=== PATIENT | female | born 1955 | race African-American/Black ===

== ENCOUNTER 2020-05-19 14:25 | Inpatient (IN) | payer OTHER ==
[~2020-05-19] VITALS: Ht 157.5 cm; Wt 145.8 kg
[2020-05-19 14:27] VITALS: BP 132/62
[2020-05-19 15:30] LABS: ABSOLUTE NEUTROPHILS 10.7 thou/uL (1.4-8.2); BASOPHILS 0.5 % (0.0-2.0); EOSINOPHILS 0.2 % (0.0-3.0); HEMATOCRIT 34.1 % (37.0-47.0); HEMOGLOBIN 10.7 gm/dL (12.0-15.0); MCH 26.9 pg (26.0-34.0); MCHC 31.5 g/dL (28.0-37.0); MCV 85.6 fL (80.0-100.0); MONOCYTES 5.2 % (1.0-8.0); PLATELET COUNT 233 thou/uL (150-400); POLYS 85.1 % (36.0-66.0); RBC 3.98 mil/uL (4.20-5.00); RDW 15.7 % (10.5-14.5); WBC 12.6 thou/uL (4.0-11.0)
[2020-05-19 15:36] LABS: CALCIUM 8.7 mg/dL (8.5-10.1); POTASSIUM 4.3 mmol/L (3.5-5.1)
[2020-05-19 15:42] LABS: ALBUMIN 2.9 g/dL (3.4-5.0); TOTAL BILIRUBIN 0.4 mg/dL (0.2-1.0); TOTAL PROTEIN 8.2 g/dL (6.4-8.2)
[2020-05-19 15:43] LABS: URINE BILIRUBIN NEGATIVE (Negative); URINE BLOOD NEGATIVE (Negative); URINE CLARITY CLEAR; URINE COLOR YELLOW; URINE GLUCOSE-RANDOM* NEGATIVE (Negative); URINE KETONES NEGATIVE (Negative); URINE LEUKOCYTES-REFLEX NEGATIVE (Negative); URINE NITRITE-REFLEX NEGATIVE (Negative); URINE PROTEIN (DIPSTICK) NEGATIVE (Negative); URINE UROBILINOGEN 0.2 E.U./dl (0.2-1.0)
[2020-05-19 18:02] LABS: BE(vivo) 2.7 mmol/L (-2 to +3); HCO3 27.1 mmol/L (22.0-26.0); PCO2 40.7 mmHg (35.0-45.0); PO2 83.3 mmHg (80.0-100.0); pH 7.441 (7.360-7.450); sO2 96.6 % (92.0-98.0)
[2020-05-20] MEDS ORDERED: PROAIR HFA8.5 GM INH (03:33)
[2020-05-20] MEDS ORDERED: ANORO ELLIPTA1 EACH INH (03:34)
[2020-05-20] MEDS ORDERED: BACLOFEN 10MG T10 MG PO (03:34)
[2020-05-20] MEDS ORDERED: CARTIA XT300 M1 PO (03:35)
[2020-05-20] MEDS ORDERED: CYMBALTA30 MG PO (03:36)
[2020-05-20] MEDS ORDERED: VITAMIN D350 MCG PO (03:36)
[2020-05-20] MEDS ORDERED: NEURONTIN 400400 M1 PO (03:37)
[2020-05-20] MEDS ORDERED: IBUPROFEN 600600 M1 PO (03:38)
[2020-05-20] MEDS ORDERED: HUMULIN R100 UNIT/1 SUBQ (03:38)
[2020-05-20] MEDS ORDERED: LEVEMIR FL100 UNIT/2 SUBQ (03:40)
[2020-05-20] MEDS ORDERED: IPRAT-ALBUT 0.5-3 ML INH (03:40)
[2020-05-20] MEDS ORDERED: ZESTRIL40 MG PO (03:41)
[2020-05-20] MEDS ORDERED: LIDOCAINE 2%2 %/5 GM TOP (03:41)
[2020-05-20] MEDS ORDERED: POTASSIUM20 PO (03:42)
[2020-05-20] MEDS ORDERED: HYDROCODON-ACE1 EAC7 PO (03:42)
[2020-05-20] MEDS ORDERED: ROSUVASTATIN CA20 MG PO (03:43)
[2020-05-20] MEDS ORDERED: ULTRAM50 MG PO (03:44)
[2020-05-20] MEDS ORDERED: DEMADEX20 MG PO (03:44)
[2020-05-20] MEDS ORDERED: TYLENOL325 M1 PO (03:45)
[2020-05-20 06:12] LABS: HEMATOCRIT 33.6 % (37.0-47.0); HEMOGLOBIN 11.2 gm/dL (12.0-15.0); MCH 28.9 pg (26.0-34.0); MCHC 33.2 g/dL (28.0-37.0); PLATELET COUNT 204 thou/uL (150-400); RBC 3.86 mil/uL (4.20-5.00); RDW 16.1 % (10.5-14.5); WBC 24.3 thou/uL (4.0-11.0)
[2020-05-20 06:21] LABS: CALCIUM 8.2 mg/dL (8.5-10.1); MAGNESIUM 1.7 mg/dL (1.8-2.4); POTASSIUM 3.4 mmol/L (3.5-5.1)
[2020-05-20 06:44] LABS: TROPONIN-I 0.63 ng/mL (<0.06)
--- NOTE | 2020-05-20 07:48 | EKG ---
[facility] [place] [address] ELECTROCARDIOGRAM REPORT Name: GILDA CONTRERAS Room #: 170-23 ADM IN M.R.#: [id number] Admission: 05/19/20 Attend Phys: Richard Hitchcock MD Discharge: Date of : 53 Report #: [id number] THIS REPORT FOR: cc: Sobia Monk,Sobia Villafuerte,Gabriel Arana MD [facility] ~ THIS REPORT FOR: //name// [facility] ED Test Date: 2020-05-19 Test Time: 14:44:05 Pat Name: GILDA TORRES Department: Room: 170 Gender: F [employer]: TEE : 1955 Requested By: Tomasa Martinez Order Number: [id number] MD: Gabriel Abraham Measurements Intervals [place] Rate: 123 P: 54 WA: 166 QRS: 15 QRSD: 83 T: 64 QT: 298 QTc: 427 Interpretive Statements Sinus tachycardia Otherwise normal No previous ECG available for comparison Electronically Signed On 05-20-2020 7:47:49 CDT by Gabriel Abraham [email or web address] <ELECTRONICALLY SIGNED> By: Gabriel Abraham MD, [facility] 05/20/20 0747 1444 1444 Gabriel Abraham MD, [facility] /EPI
[2020-05-20 07:49] VITALS: BP 92/44
--- NOTE | 2020-05-20 08:41 | NUR ---
PT TRANSFERRED TO INPATIENT BED AND REPOSITIONED WITH STAFF ASSISTANCE. PT RIGHT LEG WOUND WRAPPED. PT REMOVED FROM BEDPAN. STATES SHE IS UNABLE TO HAVE BM AT THIS TIME. DENIES FURTHER NEDS AT THIS TIME.
[2020-05-20 09:11] LABS: ABSOLUTE NEUTROPHILS 23.1 thou/uL (1.4-8.2); ANISOCYTOSIS 1+
[2020-05-20 09:42] LABS: CHOLESTEROL 102 mg/dL (<200); HDL CHOLESTEROL 42 mg/dL (>40); LDL CHOLESTEROL 47 mg/dL (<100); TC:HDL 2.4 Ratio (Not establshd); TRIGLYCERIDE 67 mg/dL (<150); VLDL 13 mg/dL (<40)
--- NOTE | 2020-05-20 10:08 | NUR ---
TIME OUT/ VERIFICATION COMPLETED WITH EVA Flores RN IV TEAM FOR PICC LINE PLACEMENT
--- NOTE | 2020-05-20 10:50 | NUR ---
PT RECEIVED EKG & CXR. AWAITING RESULTS FOR PICC LINE USE
--- NOTE | 2020-05-20 11:33 | NUR ---
REMOVED PT BREAKFAST TRAY, MOVED BED TABLE TO SIDE OF BED AND CHANGED TV CHANNEL FOR PT PER HER REQUEST. PT DENIES FURTHER NEEDS AT THIS TIME.
--- NOTE | 2020-05-20 12:00 | NUR ---
VASCULAR ACCESS CONSULTED FOR PICC LINE. PT'S LABS,MEDS,HISTORY,ORDER AND CONSENT VERIFIED. DISCUSSED BENEFITS AND RISK OF PICC PT VERBALIZED UNDERSTANDING. RACHAEL CEPHALIC WAS WIDELY PATENT WITH USG, 4FR DL POWER PICC TRIMMED TO 49CM INSERTED TO 0CM. 1ST CXR STATES TOO DEEP WITHDREW PICC 2CM ORDERED 2ND CXR PT TOLERATED WELL
[2020-05-20 12:09] VITALS: BP 102/50
--- NOTE | 2020-05-20 12:40 | NUR ---
CXR CONFIRMED PLACEMENT IN DISTAL SVC, RELEASED FOR IMMEDIATE USE PER PROTOCOL TO DILIA STREETER
--- NOTE | 2020-05-20 15:51 | EKG ---
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 : 1955 Requested By: Nancy Oconnell Order Number: [id number] MD: Buddy Copeland Measurements Intervals [place] Rate: 84 P: 58 ME: 167 QRS: -7 QRSD: 102 T: 30 QT: 385 QTc: 456 Interpretive Statements Sinus rhythm Paired ventricular premature complexes Low voltage, precordial leads Compared to ECG 05/19/2020 14:44:05 Ventricular premature complex(es) now present Low QRS voltage now present Sinus tachycardia no longer present Electronically Signed On 05-20-2020 15:50:52 CDT by Buddy Copeland [email or web address] <ELECTRONICALLY SIGNED> By: Buddy Copeland MD 05/20/20 1550 1046 1046 Buddy Copeland MD /EPI
[2020-05-20 16:30] VITALS: BP 107/50
[2020-05-20 20:54] VITALS: BP 107/50
[2020-05-20 21:30] VITALS: BP 140/50
[2020-05-21 04:33] VITALS: BP 166/79
[2020-05-21 06:12] LABS: HEMATOCRIT 33.2 % (37.0-47.0); HEMOGLOBIN 10.6 gm/dL (12.0-15.0); MCH 27.3 pg (26.0-34.0); MCHC 31.8 g/dL (28.0-37.0); MCV 85.9 fL (80.0-100.0); RBC 3.87 mil/uL (4.20-5.00); RDW 15.8 % (10.5-14.5); WBC 19.9 thou/uL (4.0-11.0)
[2020-05-21 06:50] LABS: CALCIUM 8.6 mg/dL (8.5-10.1); POTASSIUM 3.7 mmol/L (3.5-5.1)
[2020-05-21 07:42] VITALS: BP 154/86
[2020-05-21 11:43] VITALS: BP 156/75
[2020-05-21 15:39] VITALS: BP 157/71
--- NOTE | 2020-05-21 16:08 | NUR ---
INITIAL ASSESSMENT: ANDREW reviewed chart and spoke with nursing and attending physician. Pt was admitted from [facility] due to pneumonia/hypoxia. Pt placed in Enhanced Isolation to r/o COVID-19. Pt's two tests are negative. ANDREW spoke with pt via phone. Introduced role of SW. Pt appears to be alert/orientated. Pt reports she has lived at [facility] for about a year. Pt has a cane, walker and w/c at the facility. Pt confirms plan to return to [facility] when medically stable. Pt's sisters, Glo and Sheryl, listed as contacts for pt. SW faxed clinical info/COVID test results to [facility] for review. ANDREW spoke with Angelica in admissions, to provide update. Per Angelica, pt has tested negative for COVID at their facility. Pt would benefit from therapy evals when able to participate. ANDREW is following to assist as needed with discharge planning.
[2020-05-21 20:48] VITALS: BP 168/88
[2020-05-21] MEDS ORDERED: HUMALOG100 UNIT/1 SUBQ (22:53)
[2020-05-22 03:06] LABS: GLYCOHEMOGLOBIN (HGB A1C) 6.9 % (4.8-5.6)
--- NOTE | 2020-05-22 06:00 | NUR ---
Pt. awake all night watching television. She c/o pain to her lower legs and pain meds given (see emar) with some relief noted. Elevated blood sugar at and [facility] notified, see new orders. Bed alarm is on.
[2020-05-22 07:23] VITALS: BP 173/72
[2020-05-22 08:49] LABS: CALCIUM 8.7 mg/dL (8.5-10.1); POTASSIUM 3.6 mmol/L (3.5-5.1)
--- NOTE | 2020-05-22 09:45 | NUR ---
ORDERS RECEIVED FOR COGNITIVE/COMMUNICATION EVALUATION. HOWEVER PATIENT REFUSED FORMAL EVALUATION THIS DATE. BASED ON CLINICAL PRESENTATION EVIDENCED DURING CLINICAL BEDSIDE SWALLOW EVALUATION WELL WITNESSED DURING PATIENT AND MEDICAL/NURSING STAFF INTERACTIONS, PATIENT IS LIKELY AT PREMORBID COGNITIVE BASELINE. PATIENT LIKELY TO DISCHARGE BACK TO SNF LATER THIS DATE. OFFICIAL GREETER TO SIGN OFF AT THIS TIME.
--- NOTE | 2020-05-22 10:29 | 2DMMODE ---
[facility] [place] [address] 2 D/M-MODE ECHOCARDIOGRAM Name: GAUDENCIO TORRESGILDABrandi LOPEZ Room #: 453-P ADM IN M.R.#: [id number] Admission: 05/19/20 Attend Phys: Richard Hitchcock MD Discharge: Date of : 53 Report #: [id number] THIS REPORT FOR: cc: Sobia Monk,Sobia Hammond,Nabeel Chery MD ~ APPROVED REPORT Study performed: 05/22/2020 09:27:38 EXAM: Comprehensive 2D, Doppler, and color-flow Echocardiogram Patient Location: Bedside Room #: [facility] Status: routine BSA: 2.34 HR: 67 bpm BP: 168/88 mmHg Rhythm: NSR Other Information Study Quality: Adequate Technically limited study due to body habitus. Indications Congestive Heart Failure Diabetes Elevated Troponin Hypertension/HDD 2D Dimensions IVSd: 11.68 (7-11mm) LVOT Diam: 21.81 (18-24mm) LVDd: 49.17 mm PWd: 13.45 (7-11mm) Ascending Ao: 31.40 (22-36mm) LVDs: 33.19 (25-40mm) Aortic Root: 29.89 mm IVC: 21.00 mm Volumes Left Atrial Volume (Systole) Single Plane 4CH: 77.20 mL Single Plane 2CH: 77.13 mL LA ESV Index: 38.00 mL/m2 Aortic Valve AoV Peak Danielito.: 1.72 m/s [facility] [address] [place] [address] 2 D/M-MODE ECHOCARDIOGRAM Name: GILDA CONTRERAS Room #: 453-[facility] IN ..#: [id number] Admission: 05/19/20 Attend Phys: Richard Hitchcock MD Discharge: Date of : 53 Report #: [id number] Peak Gr.: 11.84 mmHg LVOT Max P.83 mmHg LVOT Max V: 1.21 m/s SAVANNAH Vmax: 2.62 cm2 Mitral Valve E/A Ratio: 1.3 MV Decel. Time: 176.74 ms MV E Max Danielito.: 1.36 m/s MV A Danielito.: 1.06 m/s MV PHT: 51.25 ms IVRT: 55.36 ms Pulmonary Valve PV Peak Danielito.: 1.08 m/s PV Peak Gr.: 4.66 mmHg Pulmonary Vein P Vein S: 0.60 m/s P Vein A: 0.28 m/s P Vein D: 0.40 m/s P Vein A Dur.: 110.7 msec P Vein S/D Ratio: 1.50 Left Ventricle The left ventricle is normal size. There is normal LV segmental wall motion. Mild concentric left ventricular hypertrophy. The left ventricular systolic function is normal. The left ventricular ejection fraction is within the normal range. LVEF is 55-60%. Grade I - abnormal relaxation pattern. Right Ventricle The right ventricle is normal size. The right ventricular systolic function is normal. Atria Left atrium is mildly dilated. The right atrium size is normal. Aortic Valve The aortic valve is normal in structure. No aortic regurgitation is present. There is no aortic valvular stenosis. Mitral Valve The mitral valve is normal in structure. There is no mitral valve regurgitation noted. No evidence of mitral valve stenosis. Tricuspid Valve The tricuspid valve is normal in structure. There is no tricuspid valve regurgitation noted. [facility] [address] [place] [address] 2 D/M-MODE ECHOCARDIOGRAM Name: GILDA CONTRERAS Room #: 453-P ADM IN M.R.#: [id number] Admission: 05/19/20 Attend Phys: Richard Hitchcock MD Discharge: Date of : 53 Report #: [id number] Pulmonic Valve The pulmonary valve is normal in structure. There is no pulmonic valvular regurgitation. Great Vessels The aortic root is normal in size. IVC is dilated and collapses >50% with inspiration. Pericardium There is no pericardial effusion. <Conclusion> The left ventricle is normal size. Mild concentric left ventricular hypertrophy. The left ventricular systolic function is normal. Grade I - abnormal relaxation pattern. The right ventricle is normal size. Left atrium is mildly dilated. The aortic valve is normal in structure. There is no mitral valve regurgitation noted. <ELECTRONICALLY SIGNED> By: Nabeel Celis MD 05/22/20 1028 1028 1028 Nabeel Celis MD /INF
--- NOTE | 2020-05-22 14:37 | NUR ---
CARE TEAM INDICATED THAT PT IS TO HAVE ECHO DONE TODAY AND TO FOLLOW UP ON OUTPATIENT BASIS FOR STRESS TEST. PT CONTINUES ON VANC AND ZOSYN AND IT APPEARES ID IS STILL AWAITING FINAL CULTURES TO DETERMINE CONTINUED IV ABX TREATMENT. CM CALLED JAYLEN AND LEFT A VM FOR YANIRA IN ADMISSIONS. TO DETERMINE IF PT WOULD NEED ANOTHER COVID TEST PRIOR TO POSSIBLE ADMISSION. AWAITNING RESPONSE.
--- NOTE | 2020-05-22 15:22 | NUR ---
Assumed pt care at 7am.Pt in bed very anxious about getting breakfast.Rn told pt tray will be deliver before 9am.Assessment completed.vss.Dr Celis and Mariana her,order noted.Received call from [facility],updates given. Pt tolerated meds and diet.Wanted to dc to [facility] today if possible.Drsg change to rt lower leg will be done later this shift per pt request.No verbal c/o at present.Will continue to monitor.
[2020-05-22 20:53] VITALS: BP 129/59
--- NOTE | 2020-05-22 23:48 | NUR ---
ASSUMED CARE OF PT AT 1900. PT IS A/O X4. DRESSINGS TO RIGHT LOWER LEG CHANGED BY DAY SHIFT NURSE AND IS DRY AND INTACT WITH NO DRAINAGE. PT DOES C/O PAIN TO LOWER RIGHT LEG. PRN PAIN MEDICATION GIVEN DIRECTED. PT IS CURRENTLY LYING DOWN IN HER BED AND APPEARS TO BE SLEEPING. FALL PRECAUTIONS ARE IN PLACE, CALL LIGHT IS WITHIN REACH. WILL CONTINUE TO MONITOR.
[2020-05-23 05:53] LABS: CALCIUM 8.4 mg/dL (8.5-10.1); CREATININE 1.1 mg/dL (0.6-1.0); POTASSIUM 3.4 mmol/L (3.5-5.1)
[2020-05-23 08:13] VITALS: BP 180/78
--- NOTE | 2020-05-23 11:22 | HC ---
[facility] [place] [address] CONSULTATION Name: GAUDENCIO TORRESGILDABrandi LOPEZ Room #: 453-P ADM IN M.R.#: [id number] Admission: 05/19/20 Attend Phys: Richard Hitchcock MD Discharge: Date of : 53 Report #: [id number] THIS REPORT FOR: cc: Sobia Monk,Alee Brooks MD ~ CC: Sobia Hitchcock DATE OF SERVICE: 05/22/2020 ENDOCRINE CONSULTATION NOTE CONSULTING PHYSICIAN: Dr. Hitchcock. REASON FOR CONSULTATION: Uncontrolled type 2 diabetes mellitus, hyperglycemia. HISTORY OF PRESENT ILLNESS: This is a 64-year-old female patient who presented to [facility] by EMS from her residence at [facility] with reports of altered mental status. When she arrived to the ER, the patient was worked up and was found to have issues pertaining to acute on chronic CHF, elevated troponin with possible non-STEMI as well as sepsis. She was admitted for further care and monitoring. The patient's background is significant for multiple medical issues including type 2 diabetes mellitus as well as obesity, hypertension, hyperlipidemia. She has been diagnosed with diabetes mellitus over 10 years ago and is maintained on a combination of Humulin R insulin 85 units per meal, Levemir insulin 135 units at night. She describes a very good level of control at her shelter facility with most blood glucose values falling between 80 and 130 mg/dL and without issues pertaining to hypoglycemia. The patient is not aware of difficulties pertaining to diabetic retinopathy, but does have peripheral neuropathy affecting both feet. She is also known to have hyperlipidemia and is maintained on Crestor therapy. She is hypertensive and reports that her blood pressure is typically under adequate control on a combination of torsemide, lisinopril and diltiazem. REVIEW OF SYSTEMS: CONSTITUTIONAL: Fatigue, tiredness, but not fever or chills or changes in body weight. HEENT: Negative for sore throat, sinus pain or ear drainage. PULMONARY: Occasional shortness of breath and cough, but no hemoptysis. CARDIAC: Lower extremity swelling, chronic dyspnea on exertion. No chest pain or palpitations. GASTROINTESTINAL: Occasional abdominal discomfort and nausea, but no vomiting. NEUROLOGY: Mental status changes, behavioral changes. Occasional [facility] [address] [place] [address] CONSULTATION Name: GAUDENCIO TORRESGILDA Room #: 453[facility] IN M.R.#: [id number] Admission: 05/19/20 Attend Phys: Richard Hitchcock MD Discharge: Date of : 53 Report #: [id number] lightheadedness, but not seizure activity or severe frequent headaches. DERMATOLOGIC: Chronic lower extremity stasis dermatitis. Otherwise, review of systems noncontributory other than those mentioned in HPI. PAST MEDICAL HISTORY: 1. Type 2 diabetes mellitus. 2. Hypertension. 3. Hyperlipidemia. 4. Obesity. 5. Obstructive sleep apnea. 6. History of sarcoidosis. 7. Chronic lymphedema. 8. Chronic venous insufficiency. 9. Peripheral diabetic neuropathy. OUTPATIENT MEDICATIONS: Include acetaminophen t.i.d. p.r.n., tramadol 50 mg q.i.d. p.r.n., torsemide 20 mg daily, rosuvastatin 20 mg daily, potassium chloride t.i.d., lisinopril 40 mg daily, Levemir insulin 135 units at bedtime, ibuprofen 600 mg q. 6 hours p.r.n., Humulin R insulin 85 units t.i.d. a.c., gabapentin 400 mg p.o. q.i.d., duloxetine 30 mg daily, cholecalciferol vitamin D3 2000 units daily, diltiazem 300 mg daily, baclofen 10 mg t.i.d., albuterol 2 puffs p.r.n. ALLERGIES: ATORVASTATIN AND CONTRAST DYE. FAMILY HISTORY: Noncontributory. SOCIAL HISTORY: The patient resides at [facility]. Denies use of alcohol. She is an ex-smoker, quit more than 20 years ago. PHYSICAL EXAMINATION: GENERAL: Pleasant female patient who is not in apparent pain or distress. VITAL SIGNS: Blood pressure is 168/88 mmHg, heart rate is 55 beats per minute, respiration 18 per minute, temperature is 36.4 degrees Celsius. CONSTITUTIONAL: The patient is sitting upright in bed. She does not seem to be in apparent pain or distress. She is morbidly obese. HEENT: Anicteric sclerae. Intact extraocular motions. NECK: Supple, without JVD or thyromegaly. CHEST: Noted for distant breath sounds with scattered rales, but not wheezes or crackles. HEART: Regular rate and rhythm without murmurs or gallops. ABDOMEN: Obese, but soft, lax. No guarding. Active bowel sounds. EXTREMITIES: Lower extremity exam both lower extremities are wrapped in compression dressing. No open skin wounds. Pedal pulses are faint. NEUROLOGIC: Awake, alert and oriented to time, place and person. The remainder of her examination is largely nonfocal. [facility] [address] [place] [address] CONSULTATION Name: GILDA CONTRERAS Room #: 453-P [facility] IN Paul#: [id number] Admission: 05/19/20 Attend Phys: Richard Hitchcock MD Discharge: Date of : 53 Report #: [id number] PSYCHIATRIC: Pleasant, interactive. Normal mood and affect. LABORATORY DATA: Blood glucose on arrival was 278 and has gone as high as 446 mg/dL, most recently at 312 mg/dL. Sodium 137, potassium 3.6, chloride 99, CO2 of 31, anion gap 7, creatinine 1.0, AST 17, total bilirubin 0.4, calcium 8.7, magnesium 1.7, alkaline phosphatase 47, ALT 12, total protein 8.2, albumin 2.9 and EGFR 67. Lactic acid 1.2. Troponin 0.63. Total cholesterol 102, triglycerides 65, HDL 42, LDL 47. BNP 1421. White blood count 19.9, hemoglobin 10.6, hematocrit 33.2, platelets 193. Hemoglobin A1c is 6.9%. ASSESSMENT AND PLAN: 1. Type 2 diabetes mellitus. The patient has a rather large insulin dose requirement; however, she reports well controlled blood glucose values on a daily basis as well as a lack of hypoglycemia. Her hemoglobin A1c of 6.9% measured here speaks of the same outlook. Given this seemingly suitable regimen, I will place the patient on a combination of Humulin R 50 units with meals as well as Lantus insulin at 110 units at bedtime. This will be accompanied by moderate intensity Humalog supplemental scale to be used as needed. Blood glucose monitoring will be commenced a.c. and at bedtime to help with the patient's management. The patient is being given significantly lower dose than her usual maintenance dose due to the expectation of p.o. intake deficit compared to her home environment. 2. Hypertension. The patient's level of blood pressure control has been adequate, continue the current regimen. 3. Hyperlipidemia. The patient currently is treated with Crestor as an outpatient for hyperlipidemia. I will place her on atorvastatin during this hospital stay at 40 mg daily. 4. Diabetic neuropathy. The patient is maintained on a combination of gabapentin and duloxetine as an outpatient for diabetic neuropathy with a fair control. She seems to be comfortable so far during this hospital stay. I will defer the resumption of these agents to her hospital medicine team. I have reviewed the patient's clinical care notes, laboratory data, and other pertinent clinical information for over 35 minutes in addition to my encounter time with this patient. I certainly appreciate this consultation by Dr. Hitchcock. <ELECTRONICALLY SIGNED> By: Alee Wu MD 05/23/20 1122 1314 1331 Alee Wu MD /nt
[2020-05-23 15:23] VITALS: BP 143/54
--- NOTE | 2020-05-23 17:08 | NUR ---
Assumed pt care at 7am.Pt in bed resting and cheerful today.Assessment completed.vss.Pt c/o generalized pain and requested for pain med.Am meds given with breakfast and well tolerated.Complete bath and bed change done this afternoon.Dr Peña and Naldo here,order noted.Pt family here to visit, updates given.Drsg change will be done to rt lower leg at the end of shift. No further c/o. will continue to monitor.
[2020-05-23 19:46] VITALS: BP 136/57
--- NOTE | 2020-05-24 02:50 | NUR ---
ASSUMED CARE OF PT AT 1900. PT IS A/O X4. VSS. AFEBRILE. 100% O2 ON 2 LITERS NC. DRSGS TO LE ARE C/D/I. NO C/O OF SOA OR COUGH. C/O OF PAIN TO RIGHT LE. PRN PAIN MEDICATION GIVEN DIRECTED. PT IS PROGRESSING TOWARDS DC PLAN OF CARE GOALS. CURRENTLY, PT IS IN HER BED WITH HOB ELEVATED AND APPEARS TO BE SLEEPING. FALL PRECAUTIONS ARE IN PLACE, CALL LIGHT IS WITHIN REACH. WILL CONTINUE TO MONITOR.
[2020-05-24 06:13] LABS: CALCIUM 8.1 mg/dL (8.5-10.1); CREATININE 0.9 mg/dL (0.6-1.0)
[2020-05-24 06:15] LABS: POTASSIUM 2.9 mmol/L (3.5-5.1)
[2020-05-24 07:27] VITALS: BP 134/68
[2020-05-24 16:19] LABS: EOSINOPHILS 0.1 % (0.0-3.0); MCH 27.2 pg (26.0-34.0); MONOCYTES 3.7 % (1.0-8.0)
[2020-05-24 16:21] LABS: ABSOLUTE NEUTROPHILS 11.5 thou/uL (1.4-8.2); BASOPHILS 0.3 % (0.0-2.0); HEMATOCRIT 37.9 % (37.0-47.0); LYMPHOCYTES 9.8 % (24.0-44.0); MCHC 31.8 g/dL (28.0-37.0); MCV 85.8 fL (80.0-100.0); POLYS 86.1 % (36.0-66.0); RBC 4.41 mil/uL (4.20-5.00); RDW 15.8 % (10.5-14.5); WBC 14.1 thou/uL (4.0-11.0)
[2020-05-24 16:24] VITALS: BP 116/41
[2020-05-24 16:33] LABS: CREATININE 1.2 mg/dL (0.6-1.0); MAGNESIUM 1.6 mg/dL (1.8-2.4); POTASSIUM 3.3 mmol/L (3.5-5.1)
[2020-05-24 16:43] LABS: PLATELET COUNT 183 thou/uL (150-400)
--- NOTE | 2020-05-24 19:04 | NUR ---
A/O, afebrile, calm and cooperative. on room air for the whole shift. up to chair since after lunch, tolerated well.
[2020-05-24 19:10] VITALS: BP 134/56
--- NOTE | 2020-05-25 05:47 | NUR ---
PATIENT ALERT AND ORIENTED X4. COOPERATIVE WITH CARE. IV ABX INFUSED W/O COMPLICATION. BS MONITORED PER ORDER. PROCTOR TO D/D WITH YELLOW URINE. 2LNC WITH SOA UPON EXERTION. BILATERAL LOWER LEGS WRAPPED D/I. MEDICATED WITH HYDROCODONE X1. PATIENT REFUSED TRAMADOL AFTER THIS NURSE REMOVED FROM [facility], WASTED WITH RN. PATIENT UP IN CHAIR AT SHIFT CHANGE, TRANSFERRED TO BED WITH ONE ASSIST. WILL MONITOR.
[2020-05-25 07:35] VITALS: BP 146/55
[2020-05-25 07:47] LABS: HEMATOCRIT 35.2 % (37.0-47.0); HEMOGLOBIN 11.3 gm/dL (12.0-15.0); MCH 27.5 pg (26.0-34.0); MCHC 32.1 g/dL (28.0-37.0); MCV 85.6 fL (80.0-100.0); RBC 4.12 mil/uL (4.20-5.00); RDW 15.8 % (10.5-14.5); WBC 16.9 thou/uL (4.0-11.0)
[2020-05-25 08:11] LABS: CREATININE 0.9 mg/dL (0.6-1.0)
[2020-05-25 08:46] LABS: POTASSIUM 2.9 mmol/L (3.5-5.1)
[2020-05-25] MEDS ORDERED: PEPCID20 MG PO (12:16)
[2020-05-25] MEDS ORDERED: DEMADEX20 MG PO (12:16)
[2020-05-25] MEDS ORDERED: ASPIR 8181 MG PO (12:16)
[2020-05-25] MEDS ORDERED: CARVEDILOL12.5 MG PO (12:16)
[2020-05-25] MEDS ORDERED: MAG-OXIDE400 MG PO (12:16)
[2020-05-25] MEDS ORDERED: BENAZEPRIL HCL20 MG PO (12:16)
[2020-05-25] MEDS ORDERED: CYMBALTA30 MG PO (12:16)
[2020-05-25] MEDS ORDERED: PREDNISONE 5 MG5 MG PO (12:16)
[2020-05-25] MEDS ORDERED: MUCINEX600 MG PO (12:16)
[2020-05-25] MEDS ORDERED: AUGMENTIN 875-1 EACH PO (12:20)
--- NOTE | 2020-05-25 14:01 | NUR ---
PT DISCHARGING TODAY TO [facility] FAXED DC ORDERS/SUMMARY TO FACILITY SPOKE WITH YANIRA IN ADM SHE RECEIVED ORDERS AND ARRANGED TRANSPORT BY [facility] FOR [phone] TODAY. NOTIFIED PT'S SISTER (MAYURI) OF DC AND TIME OF TRANSPORT. UNIT NOTIFIED AND CHART COPY PER US. RN TO CALL REPORT TO [phone].
--- NOTE | 2020-05-25 14:53 | NUR ---
CARE TEAM INDICATED THAT PT IS MEDIALLY STABLE TO DISCHARGE BACK TO [facility] THIS DAY. CHART COPY ORDERED. ORDERS FAXED. [facility] TRANSPORT ARRANGED FOR 1700. PT AND SISTER ARE AWARE AND AGREEABLE. REPORT ALREADY CALLED BY NURSE. NO OTHER CM INTERVENTION INDICATED. CASE CLOSED.
[2020-05-25 15:42] VITALS: BP 137/63
[2020-05-25 17:26] VITALS: BP 137/63
--- NOTE | 2020-05-25 17:50 | NUR ---
Assumed pt care at 7am.Assessment completed.vss.Pt very anxious abot dc to [facility] today.Dr Hitchcock here,dc order noted.infrastructure project manager arranged for transport.Later this afternoon,Dr Campbell here and ordered new drsg change.Pt refused dc wound picture.She said there no need and should be left alone.Report off to Maureen lepe at [facility].Pt left per stretcher at 1750 in stable condition to [facility].
--- NOTE | 2020-05-26 09:58 | HC ---
[facility] [place] [address] CONSULTATION Name: GILDA CONTRERAS Room #: 453-P [facility] IN M.R.#: [id number] Admission: 05/19/20 Attend Phys: Richard Hitchcock MD Discharge: 05/25/20 Date of : 53 Report #: [id number] THIS REPORT FOR: cc: Sobia Monk,Rajat Humphreys MD ~ CC: Sobia Hitchcock DATE OF SERVICE: 05/20/2020 CHIEF COMPLAINT: Ulcerations lower extremity. HISTORY OF PRESENT ILLNESS: This is a 64-year-old female patient with a history of congestive heart failure, who presented to the Emergency Department with increasing shortness of breath and respiratory failure. She was noted to have ulcerations on her lower extremities. I have been asked to see her in this regard. The patient is sitting up. She is in the Emergency Department. She is not in distress at this time. ALLERGIES: Include ATORVASTATIN AND CONTRAST DYE. MEDICATIONS: Include acetaminophen, aspirin, carvedilol, famotidine, glucagon, insulin, lisinopril, Solu-Medrol, polyethylene glycol, vancomycin, tramadol. PAST MEDICAL HISTORY: Positive for history of congestive heart failure, chronic lymphedema, history of sarcoidosis, depression, diabetes, morbid obesity, venous insufficiency, asthma, obstructive sleep apnea. SOCIAL HISTORY: Negative for alcohol use. Positive for previous smoking. FAMILY HISTORY: Noncontributory. REVIEW OF SYSTEMS: CONSTITUTIONAL: The patient does complain of fever, denies chills or weight loss. NEUROLOGICAL: The patient denies focal weakness, numbness or tingling. EYES: The patient denies visual changes, redness, or drainage. ENT: The patient denies earache, nasal drainage, sore throat. CARDIOVASCULAR: The patient denies chest pain, palpitations or diaphoresis. PULMONARY: The patient denies cough or shortness of breath. GASTROINTESTINAL: The patient denies nausea, vomiting, diarrhea or abdominal pain. ORTHOPEDIC: The patient does complain of pain and swelling and ulcerations to the right lower extremity. Other systems in a 14-point review of systems are negative. [address] [address] CONSULTATION Name: GAUDENCIO BRIANGILDA Room #: 453-P [facility] IN [facility].#: [id number] Admission: 05/19/20 Attend Phys: Richard Hitchcock MD Discharge: 05/25/20 Date of : 53 Report #: [id number] PHYSICAL EXAMINATION: VITAL SIGNS: At this time include temperature 98.7, pulse 72, respiratory rate 19, blood pressure 102/50. GENERAL: This is a somewhat chronically ill-appearing female patient who appears to be in minimal distress. HEENT: Head normocephalic. Nose and throat clear. NECK: Supple. LUNGS: Diminished. HEART: Regular rhythm. ABDOMEN: Soft, bowel sounds present. EXTREMITIES: Lower extremities demonstrate venous stasis dermatitis and superficial ulcerations to the right lower extremity, some chronic stasis dermatitis to both lower extremities. NEUROLOGIC: The patient is alert and oriented, moving all 4 extremities spontaneously . LABORATORY DATA: Includes white blood cell count 24,000, hemoglobin 11.2. Sodium 137, potassium 3.4, chloride 100, CO2 of 26, BUN 15, creatinine 1.0, glucose 282. Troponin I is elevated at 0.63. Albumin is 2.9. CLINICAL IMPRESSION: 1. Venous type ulcerations to the right lower extremity. 2. Venous stasis dermatitis, bilateral lower extremities, chronic lymphedema. 3. History of hypertension, hyperlipidemia, type 2 diabetes mellitus and morbid obesity. 4. Moderate protein-calorie malnutrition. RECOMMENDATIONS: At this point in time, we will recommend topical AmLactin to the dry skin of both lower extremities, gentamicin, Xeroform, ABD, Kerlix and Erickson wrap to the ulcers on the right side and Kerlix, Erickson and AmLactin to the left lower extremity, continuation of current medications. Maximize nutrition for both glycemic control and wound healing. I appreciate being asked to see her in consultation. <ELECTRONICALLY SIGNED> By: Rajat Ojeda MD 05/26/20 [id number] Rajat Ojeda MD /nt
--- NOTE | 2020-05-27 14:55 | NUR ---
Call back rec'd from Kate at [facility] regarding pt's pending covid results. Pt tested 05/25/20. Bilingual Hr Generalist spoke with Marcia in the lab and she is checking on results as it was a send out.
== END 2020-05-25 18:27 | DRG 871 ==
LOC: ER 14:25 → 3W 17:16 → EROBS 17:16 → 3W 05-20 21:42 → 4W 05-21 18:32
PROVIDERS: Internal Medicine Pulmonary Disease; Nurse Practitioner; Nurse Practitioner Adult Health; Physician Assistant; ADMIT Internal Medicine; ATTEND Internal Medicine
PROC: B548ZZA Ultrasonography of Superior Vena Cava, Guidance (ICD-10-PCS; principal; 2020-05-20)
PROC: 02H633Z Insertion of Infusion Device into Right Atrium, Percutaneous Approach (ICD-10-PCS; principal; 2020-05-20)
DX: A41.9 Sepsis, unspecified organism (principal); G92 Toxic encephalopathy; J96.01 Acute respiratory failure with hypoxia; J18.9 Pneumonia, unspecified organism; I50.33 Acute on chronic diastolic (congestive) heart failure; I21.4 Non-ST elevation (NSTEMI) myocardial infarction; L97.219 Non-pressure chronic ulcer of right calf with unspecified severity; E44.0 Moderate protein-calorie malnutrition; L03.115 Cellulitis of right lower limb; Z68.43 Body mass index [BMI] 50.0-59.9, adult; I87.2 Venous insufficiency (chronic) (peripheral); I89.0 Lymphedema, not elsewhere classified; E66.01 Morbid (severe) obesity due to excess calories; F32.9 Major depressive disorder, single episode, unspecified; G47.33 Obstructive sleep apnea (adult) (pediatric); E78.5 Hyperlipidemia, unspecified; D86.9 Sarcoidosis, unspecified; E11.42 Type 2 diabetes mellitus with diabetic polyneuropathy; J45.909 Unspecified asthma, uncomplicated; I11.0 Hypertensive heart disease with heart failure; I87.8 Other specified disorders of veins; R53.81 Other malaise; G47.00 Insomnia, unspecified; E11.40 Type 2 diabetes mellitus with diabetic neuropathy, unspecified; E83.42 Hypomagnesemia; Z88.8 Allergy status to other drugs, medicaments and biological substances; Z91.041 Radiographic dye allergy status; Z87.891 Personal history of nicotine dependence; Z79.899 Other long term (current) drug therapy; Y95 Nosocomial condition; Z03.818 Encounter for observation for suspected exposure to other biological agents ruled out
CPT/HCPCS: 10045; 10879; 27000

== ENCOUNTER 2021-07-19 13:31 | Inpatient (IN) | payer OTHER ==
[~2021-07-19] VITALS: Ht 157.5 cm; Wt 163.4 kg
--- NOTE | ~2021-07-19 | EMS ---
[address] [address] EMS Patient Care Report Name: GILDA CONTRERAS Room #: 449-I [facility] IN M.R.#: [id number] Admission: 07/19/21 Attend Phys: Vinnie Haley MD Discharge: 07/21/21 Date of : 53 Report #: [id number] THIS REPORT FOR: //name// Report Transmitted: 07/19/2021 13:42 EMS Care Summary [place], [place]/[facility] Incident [id number] @ 07/19/2021 12:35 Incident Location [id number] [place] [address] 607 Patient GILDA SUAREZ Female, 66 Years 1955 Patient Address [id number] [place] [address] [address] [place] [address] Patient History Morbid Obesity, Patient Allergies Iodine,Lipitor, Patient Medications Unknown, Chief Complaint PATIENT HAS WOUNDS THAT DO NOT HEAL DUE TO NEUROPA Disposition Transported No Lights/[place] Dispatch Reason No Other Appropriate Choice Transported To [facility] Narrative MEDIC 35 WAS DISPATCHED TO THE RETIREMENT FACILITY WHERE THE RESIDENT A 66 Y.O FEMALE WAS FOUND SITTING UPRIGHT AWAKE, ALERT AND ORIENTED. THE PATIENT STATES THAT SHE WOULD LIKE TO GO TO [facility] FOR WOUND CARE. THE [address] [address] EMS Patient Care Report Name: GILDA CONTRERAS Room #: 449-I DIS IN [facility]#: [id number] Admission: 07/19/21 Attend Phys: Vinnie Haley MD Discharge: 07/21/21 Date of : 53 Report #: [id number] PATIENTS NURSE WAS ALSO PRESENT AND CONFIRMS THE PATIENT HAS NEUROPTATHY TO BOTH OF HER LOWER EXTREMITIES. PATIENT STATES THAT SHE HAS HAD WOUND CARE IN THE PAST. THE PATIENT WAS THEN ASSISTED ONTO THE STRETCHER AND SECURED THEN MOVED TO THE BACK OF AMBULANCE WHERE THE PATIENTS PAST MEDICAL HISTORY ANDVITALS WERE OBTAINED. THE PATIENT WAS THEN TRANSPORTED TO [facility] E.. DURING TRANSPORT THE PATIENT HAD NO CHANGES IN STATUS. UPON ARRIVAL THE PATIENT WAS OFFLOADED AND TAKEN TO BED 3 OF THE E.D. WHERE NURSING STAFF WAS GIVEN VERBAL REPORT. MEDIC 35 THEN WENT INTO SERVICE THERE AFTER WITHOUT INCIDENT. Initial Vitals @13:18P: 71,SpO2: 97, @13:15P: 80,CO: 22,SpO2: 96, @13:12P: 84,CO: 19,SpO2: 93, @13:12P: 84,R: 16,BP: 145/73,Pain: 8/10,GCS: 15,Glucose: 61,CO: 19,SpO2: 93,Revised Trauma: 12, @13:21P: 79,R: 20,BP: 111/62,Pain: 8/10,GCS: 15,CO: 21,SpO2: 92,Revised Trauma: 12, Assessments @13:19MENTAL:Event Oriented,Time Oriented,Person Oriented,Place Oriented,SKIN:HEENT:Head/Face: No Abnormalities,Neck/Airway: No Abnormalities,LUNG SOUNDS:General: No Abnormalities,ABDOMEN:General: No Abnormalities,PELVIS//GI:No Abnormalities,EXTREMITIES:Right Leg: Edema,Left Leg: Other,Right Leg: Other,Left Leg: Edema,Left Arm: No Abnormalities,Right Arm: No Abnormalities,PULSE:Radial: 2+ Normal,NEURO: Impression Extremity Pain Procedures @13:18BandagingResponse: UnchangedSucceeded@13:18BLS AssessmentResponse: Unchanged Timeline 12:,Call Received :,Dispatch Notified 12:35,Dispatched 12:35,En Route 12:59,On Scene 13:02,At Patient 13:12,BP: / M,PULSE: 84,RR: R,SPO2: 93 Ox,ETCO2: ,BG: ,PAIN: ,GCS: , 13:12,BP: 145/73 M,PULSE: 84,RR: 16 R,SPO2: 93 Ox,ETCO2: ,B,PAIN: 8,GCS: 15, 13:15,BP: / M,PULSE: 80,RR: R,SPO2: 96 Ox,ETCO2: ,BG: ,PAIN: ,GCS: , 13:18,Depart Scene [facility] [address] [place] [address] EMS Patient Care Report Name: GAUDENCIO TORRESGILDA Room #: 449-I [facility] IN M.R.#: [id number] Admission: 07/19/21 Attend Phys: Vinnie Haley MD Discharge: 07/21/21 Date of : 53 Report #: [id number] 13:18,BP: / M,PULSE: 71,RR: R,SPO2: 97 Ox,ETCO2: ,BG: ,PAIN: ,GCS: , 13:18,Bandaging,Response: UnchangedSucceeded, 13:18,BLS Assessment,Response: Unchanged 13:21,BP: 111/62 M,PULSE: 79,RR: 20 R,SPO2: 92 Ox,ETCO2: ,BG: ,PAIN: 8,GCS: 15, 13:25,At Destination 13:43,Call Closed Disclaimer v1.1 Copyright 2020 [employer] This EMS Care Summary contains data elements from the applicable legal record (which may be displayed differently). It is designed to provide pertinent information for the following purposes: continuity of care, clinical quality, and state data reporting. The complete legal record is available to ED staff and administrators of the receiving hospital in [facility]'s Patient Tracker. All data is provided "as is."
[2021-07-19 13:31] VITALS: BP 129/42
[~2021-07-19 13:31] MED LIST: AMOX TR-K CLV1 EAC4 PO; ANORO ELLIPTA1 EACH INH; ASPIR 8181 MG PO; AUGMENTIN 875-1 EACH PO; BACLOFEN 10MG T10 MG PO; BENAZEPRIL HCL20 MG PO; CARTIA XT300 M1 PO; CARVEDILOL12.5 MG PO; CHILDREN'S ASPI81 M1 PO; CIPROFLOXACIN250 M2 PO; CRESTOR20 MG PO; CYMBALTA30 MG PO; DEMADEX20 MG PO; ENOXAPARIN40 MG/0.1 SUBQ; FAMOTIDINE20 MG PO; FLONASE 0.05%50 MCG NASAL; FUROSEMIDE 20 M20 MG PO; GLUCAGON EMERGEN1 M1 IM; GUAIFENESIN400 MG PO; HUMALOG100 UNIT/1 SUBQ; HUMULIN R100 UNIT/1 SUBQ; HYDROCODON-ACE1 EAC7 PO; IBU600 MG PO; IBUPROFEN 600600 M1 PO; IPRAT-ALBUT 0.5-3 ML INH; KLOR-CON M2020 MEQ PO; LEVEMIR FL100 UNIT/2 SUBQ; LEVEMIR100 UNIT/1 SUBQ; LEVOFLOXACIN750 MG PO; LIDOCAINE 2%2 %/5 GM TOP; LOTENSIN20 MG PO; MAG-OXIDE400 MG PO; MAGNESIUM400 M1 PO; MUCINEX600 MG PO; NEURONTIN 400400 M1 PO; PEPCID20 MG PO; POTASSIUM20 PO; PREDNISONE 5 MG5 MG PO; PROAIR HFA8.5 GM INH; ROSUVASTATIN CA20 MG PO; SENOKOT8.6 MG PO; TYLENOL325 M1 PO; ULTRAM50 MG PO; VITAMIN D3250 MC1 PO; VITAMIN D350 MCG PO; ZESTRIL40 MG PO
[2021-07-19 14:40] LABS: BASOPHILS 1.2 % (0.0-2.0); EOSINOPHILS 4.4 % (0.0-3.0); HEMATOCRIT 37.6 % (37.0-47.0); HEMOGLOBIN 11.7 gm/dL (12.0-15.0); LYMPHOCYTES 26.6 % (24.0-44.0); MCH 27.7 pg (26.0-34.0); MCHC 31.2 g/dL (28.0-37.0); MCV 88.8 fL (80.0-100.0); MONOCYTES 15.7 % (1.0-8.0); PLATELET COUNT 187 thou/uL (150-400); POLYS 52.1 % (36.0-66.0); RBC 4.23 mil/uL (4.20-5.00); RDW 14.8 % (10.5-14.5); WBC 7.7 thou/uL (4.0-11.0)
[2021-07-19 14:47] LABS: CREATININE 0.9 mg/dL (0.6-1.0); POTASSIUM 4.1 mmol/L (3.5-5.1)
[2021-07-19 14:53] LABS: ALBUMIN 3.1 g/dL (3.4-5.0); TOTAL BILIRUBIN 0.3 mg/dL (0.2-1.0)
[2021-07-19 15:58] VITALS: BP 118/99
[2021-07-19 16:30] VITALS: BP 157/83
[2021-07-19 19:59] VITALS: BP 151/58
--- NOTE | 2021-07-19 20:35 | NUR ---
Alert and orientated X4. Calm, cooperative and interactive except when doing wound care when she became irritative and yelled occassionally. Yelling even with very mild tactile pressure. 2 mg morphine given positive behavior change but she scoffed at amt of medication. Breath sounds clear without nasal flaring or retractions. O2 sat 95% on RA. Reg HR auscultated. Color pink with brisk capillary refill and palpable peripheral pulses. IV per R forearm soft and flat, flushes easily, saline locked. Active bowel sounds over large, soft, rounded abdomen. States she had BM yesterday. Large pink wounds to lower extremities, cleaned with NS and dressed. 1 cm wound to R buttock, cleaned and border foam applied.
[2021-07-19 23:53] VITALS: BP 161/67
--- NOTE | 2021-07-20 03:47 | NUR ---
PT CARE ASSUMED WITH PT IN BED WATCHING TV.PT IS A/O X4.PT IS UP WITH X2 ASSIST TO THE BSC WITH WALKER AND GAIT BELT.IV ACCESS IN RT AC SL.PT LEGS WRAP.PT C/O SOA AND O2 SAT AT 95%.JAYE FORRESTER NOTIFIED AND BREATHING TREATMENT ORDERED.PT C/O PAIN AND PAIN MANAGED WITH MORPHNE AND NORCO PRN WITH PARTIAL RELIEF.PT IS ACCUCHECK ACHS.PT ON ROOM AIR.WILL CONTINUE TO MONITOR PER POC
[2021-07-20 05:43] LABS: HEMATOCRIT 35.4 % (37.0-47.0); HEMOGLOBIN 11.2 gm/dL (12.0-15.0); MCH 27.9 pg (26.0-34.0); MCHC 31.7 g/dL (28.0-37.0); RBC 4.02 mil/uL (4.20-5.00); RDW 14.8 % (10.5-14.5); WBC 8.9 thou/uL (4.0-11.0)
[2021-07-20 05:57] LABS: CALCIUM 8.5 mg/dL (8.5-10.1); CREATININE 0.8 mg/dL (0.6-1.0)
[2021-07-20 07:57] VITALS: BP 169/82
--- NOTE | 2021-07-20 10:45 | NUR ---
Assess due to notification of pt with lower extremity cellulitis and buttock wound. Class III obesity, BMI 65.9. Hx chronic lymphedema, CHF, DM. BG well controlled. From facility and receives sugar free Prostat protein supplement bid. Will offer beneprotein as substitute. Tolerating meals. Low nutrition risk.
--- NOTE | 2021-07-20 14:18 | NUR ---
PT ADMITTED RELATED TO RIGHT LE WOUND. CM REVIEWED CHART AND SPOKE WITH CARE TEAM. CM MET WITH PT AT BEDSIDE THIS DAY. PT APPEARED TO BE A&O X4. CM ROLE INTRODUCED. PT INDICATED SHE LIVES IN LTC AT [facility]. PT INDICATED SHE DOESN'T WANT TO RETURN THERE BUT THAT SHE KNOWS SHE HAS TO SHE DOESN'T HAVE ANYWHERE ELSE TO GO OF RIGHT NOW. PT INDICATED SHE USES A FWW, WC, AND CANE TO ASSIST WITH MOBILITY AT [facility]. PT INDICATED THAT SHE HAD LIVED THERE FOR 2 YEARS. WOUND CARE CONSULTED. CM FOLLOWING REGARDING DC PLANNING.
[2021-07-20 16:40] VITALS: BP 152/77
--- NOTE | 2021-07-20 18:30 | NUR ---
ASSUMED CARE OF PT AT 0700. PT IS ALERT AND ORIENTED, RESTED IN ROOM THROUGHOUT THE DAY VSS. CHIEF COMPLAINT THROUGHOUT THE DAY WAS PAIN CONTROL FROM BLE WOUNDS AND L BUTTOCK WOUND. CONTROLLED WITH IV AND PO MEDS AROUND AMBULATION AND DRESSING CHANGES. WOUND TEAM CAME IN TO ASSESS WOUNDS AND MD INPUT ORDERS LATE IN THE AFTERNOON. REAPPLIED DRESSING PER NEW WOUND CARE ORDERS WITH BORDER CREAM AND MORPHINE CREAM. PT VERBALIZING SHE MAY NEED MORE PAIN CONTROL, WILL ADDRESS WITH SUBSORTER RN
[2021-07-20 19:19] VITALS: BP 124/67
--- NOTE | 2021-07-21 02:21 | NUR ---
PT CARE ASSUMED WITH PT IN BED RESTING AND WATCHING TV.PT IS A/O X4.PT IS UP TO THE BSC WITH WALKER.PT C/O PAIN ON BLE AND PAIN MANAGED WITH PERCOCET WITH PARTIAL RELIEF.PT IS ACCUCHECK ACHS.IV ACCESS IN RT AC SL.PT IS ON ROOM AIR.WILL CONTINUE TO MONITOR PER POC
[2021-07-21 08:07] VITALS: BP 152/75
[2021-07-21 08:15] VITALS: BP 152/75
[2021-07-21] MEDS ORDERED: PERCOCET 10-321 EACH PO (12:22)
[2021-07-21] MEDS ORDERED: DOXYCYCLINE 10100 M2 PO (12:26)
--- NOTE | 2021-07-21 14:15 | NUR ---
CARE TEAM INDICATED THAT PT IS MEDICALLY STABLE TO DC BACK TO [facility] THIS DAY. CM NOTIFIED FACILITY. CM FAXED CLINIAL AND ORDERS. [facility] TRANSPORT ARRANGED FOR 1600. CHART COPY MADE. NURSE GIVEN NUMBER FOR REPORT. PT IS AWARE AND AGREEABLE. NO OTHER CM INTERVENTION INDICATED. CASE CLOSED.
--- NOTE | 2021-07-21 17:45 | NUR ---
ASSUMED CARE OF PT AT 0700. PT IS AOX4 FEMALE WITH BILATERAL LOWER EXTREMITY WOUNDS AND LYMPHEDEMA. THROUGHOUT THE DAY PT CONTINUED TO BE EXTREMELY DEMANDING AND IMPATIENT WITH STAFF. PT REFUSED TO WORK WITH ALL THERAPY AND RELIED ON STAFF HEAVILY FOR ADLS, DESPITE EDUCATION. PT VOCALIZED THAT SHE DID NOT WANT TO BE IN THE HOSPITAL. PT RECEIVED ORAL AND IV PAIN MEDS THROUGHOUT THE AM TO CONTROL HER PAIN, VSS. PT EATS ALL MEALS AND BS REMAINS CONTROLLED AROUND 170. PT REFUSES INSULIN SHE IS SENSITIVE AND DOES NOT WANT TO BECOME HYPOGLYCEMIC. PRIOR TO DISCHARGE A FULL BED BATH OF THE PT WAS COMPLETED AND ORAL PAIN MEDS GIVEN IN ADVANCED SO THAT DRESSING CHANGE COULD BE COMPLETED PRIOR TO TRANSFER. DURING CHANGING OF BILATERAL CALF WOUNDS WITH MORPHINE AND BARRIER CREAM, XEROFORM, ABD, GAUZE, AND ANASTASIYA WRAPS PT VERBALIZED EXTREME PAIN, BLAMING THE RN. APOLOGIZED TO PT MULTIPLE TIMES LETTING HER KNOW THAT BECAUSE IV MEDS WERE NOT AVAILABLE THE PAIN MAY BE MORE INTENSE. NEW DRESSING IS CLEAN/DRY/INTACT. DISCHARGE TO FACILITY WITH ALL BELONGINGS PER OFFICIAL TRANSPORT. WILL CALL ALL INFORMATION TO ERP PROGRAMMER RN AT RECEIVING FACILITY.
== END 2021-07-21 17:16 | DRG 605 ==
LOC: ER 13:31 → EROBS 15:40 → 4W 15:40
PROVIDERS: Emergency Medicine; ADMIT Hospitalist; ATTEND Hospitalist
DX: S81.801A Unspecified open wound, right lower leg, initial encounter (principal); L03.115 Cellulitis of right lower limb; E44.1 Mild protein-calorie malnutrition; Z68.44 Body mass index [BMI] 60.0-69.9, adult; I50.30 Unspecified diastolic (congestive) heart failure; E11.621 Type 2 diabetes mellitus with foot ulcer; Z79.4 Long term (current) use of insulin; I89.0 Lymphedema, not elsewhere classified; E66.01 Morbid (severe) obesity due to excess calories; L89.319 Pressure ulcer of right buttock, unspecified stage; Z88.8 Allergy status to other drugs, medicaments and biological substances; E78.5 Hyperlipidemia, unspecified; I11.0 Hypertensive heart disease with heart failure; Z23 Encounter for immunization; Z20.822 Contact with and (suspected) exposure to COVID-19
CPT/HCPCS: 10040; 10045

== ENCOUNTER → 2021-08-16 | Outpatient (CLI) | payer OTHER ==
[~2021-08-16] MED LIST changes: +DOXYCYCLINE 10100 M2 PO; +PERCOCET 10-321 EACH PO
== END ==
LOC: SJCVC 13:44
PROVIDERS: ATTEND Internal Medicine Cardiovascular Disease
DX: I50.812 Chronic right heart failure (principal); I10 Essential (primary) hypertension; E78.00 Pure hypercholesterolemia, unspecified; I89.0 Lymphedema, not elsewhere classified; J45.909 Unspecified asthma, uncomplicated; F32.9 Major depressive disorder, single episode, unspecified; E78.5 Hyperlipidemia, unspecified; Z88.8 Allergy status to other drugs, medicaments and biological substances; Z79.82 Long term (current) use of aspirin; Z79.899 Other long term (current) drug therapy; Z79.4 Long term (current) use of insulin

== ENCOUNTER → 2021-08-25 | Outpatient (CLI) | payer OTHER | LOC: SJCVCIMAG 10:25 | PROVIDERS: ATTEND Internal Medicine Cardiovascular Disease | DX: I49.3 Ventricular premature depolarization (principal); R00.0 Tachycardia, unspecified; Z01.810 Encounter for preprocedural cardiovascular examination; I11.0 Hypertensive heart disease with heart failure; I50.812 Chronic right heart failure; E78.00 Pure hypercholesterolemia, unspecified; I89.0 Lymphedema, not elsewhere classified; J45.909 Unspecified asthma, uncomplicated; E11.9 Type 2 diabetes mellitus without complications; E66.9 Obesity, unspecified; Z79.899 Other long term (current) drug therapy; Z79.4 Long term (current) use of insulin; Z87.891 Personal history of nicotine dependence ==

== ENCOUNTER → 2021-09-14 | Outpatient (CLI) | payer OTHER | LOC: HYPER 09:16 | PROVIDERS: ATTEND Emergency Medicine | DX: E11.622 Type 2 diabetes mellitus with other skin ulcer (principal); L97.812 Non-pressure chronic ulcer of other part of right lower leg with fat layer exposed; E11.621 Type 2 diabetes mellitus with foot ulcer; L97.522 Non-pressure chronic ulcer of other part of left foot with fat layer exposed; L84 Corns and callosities; E11.51 Type 2 diabetes mellitus with diabetic peripheral angiopathy without gangrene; E11.40 Type 2 diabetes mellitus with diabetic neuropathy, unspecified; E66.01 Morbid (severe) obesity due to excess calories; E78.5 Hyperlipidemia, unspecified; I89.0 Lymphedema, not elsewhere classified; I11.0 Hypertensive heart disease with heart failure; I50.9 Heart failure, unspecified; I87.2 Venous insufficiency (chronic) (peripheral); G47.33 Obstructive sleep apnea (adult) (pediatric); J45.909 Unspecified asthma, uncomplicated; M19.90 Unspecified osteoarthritis, unspecified site; Z98.49 Cataract extraction status, unspecified eye; Z79.4 Long term (current) use of insulin; Z79.82 Long term (current) use of aspirin ==

== ENCOUNTER → 2021-10-06 | Outpatient (CLI) | payer OTHER | LOC: HYPER 09:28 | PROVIDERS: ATTEND Emergency Medicine | DX: E11.622 Type 2 diabetes mellitus with other skin ulcer (principal); L97.812 Non-pressure chronic ulcer of other part of right lower leg with fat layer exposed; E11.621 Type 2 diabetes mellitus with foot ulcer; L97.522 Non-pressure chronic ulcer of other part of left foot with fat layer exposed; L84 Corns and callosities; E11.51 Type 2 diabetes mellitus with diabetic peripheral angiopathy without gangrene; E11.40 Type 2 diabetes mellitus with diabetic neuropathy, unspecified; E66.01 Morbid (severe) obesity due to excess calories; E78.5 Hyperlipidemia, unspecified; I89.0 Lymphedema, not elsewhere classified; I11.0 Hypertensive heart disease with heart failure; I50.9 Heart failure, unspecified; I87.2 Venous insufficiency (chronic) (peripheral); G47.33 Obstructive sleep apnea (adult) (pediatric); J45.909 Unspecified asthma, uncomplicated; M19.90 Unspecified osteoarthritis, unspecified site; Z98.49 Cataract extraction status, unspecified eye; Z79.4 Long term (current) use of insulin; Z79.82 Long term (current) use of aspirin; Z68.44 Body mass index [BMI] 60.0-69.9, adult ==

== ENCOUNTER → 2021-10-27 | Outpatient (CLI) | payer OTHER | LOC: HYPER 12:54 | PROVIDERS: ATTEND Emergency Medicine | DX: E11.622 Type 2 diabetes mellitus with other skin ulcer (principal); L97.812 Non-pressure chronic ulcer of other part of right lower leg with fat layer exposed; I87.2 Venous insufficiency (chronic) (peripheral); I89.0 Lymphedema, not elsewhere classified; E11.51 Type 2 diabetes mellitus with diabetic peripheral angiopathy without gangrene; E11.40 Type 2 diabetes mellitus with diabetic neuropathy, unspecified; I11.0 Hypertensive heart disease with heart failure; I50.9 Heart failure, unspecified; E78.5 Hyperlipidemia, unspecified; M19.90 Unspecified osteoarthritis, unspecified site; E11.36 Type 2 diabetes mellitus with diabetic cataract; H26.9 Unspecified cataract; J45.909 Unspecified asthma, uncomplicated; G47.33 Obstructive sleep apnea (adult) (pediatric); E66.01 Morbid (severe) obesity due to excess calories; Z68.44 Body mass index [BMI] 60.0-69.9, adult; Z79.82 Long term (current) use of aspirin; Z79.899 Other long term (current) drug therapy ==

== ENCOUNTER 2021-11-16 20:36 | Inpatient (IN) | payer OTHER ==
[~2021-11-16] VITALS: Ht 162.6 cm; Wt 145.7 kg
--- NOTE | ~2021-11-16 | EMS ---
[facility] [address] [place] [address] EMS Patient Care Report Name: GILDA CONTRERAS Room #: REG Paul#: [id number] Admission: 11/16/21 Attend Phys: Discharge: Date of : 53 Report #: [id number] THIS REPORT FOR: //name// Report Transmitted: 11/16/2021 20:51 EMS Care Summary [place], [place]/[facility] Incident [id number] @ 11/16/2021 19:50 Incident Location [address] [place] [address] RM 607 Patient GILDA SUAREZ Female, 66 Years 1955 Patient Address [id number] [place] [address] [address] [place] [address] Patient History Morbid Obesity,Chronic Pain,Type 1 Diabetes,Type 2 Diabetes,Cellulitis, Patient Allergies No known allergies, Chief Complaint Weakness Disposition Transported No Lights/[place] Dispatch Reason Sick Person Transported To [facility] Narrative Nurse at [facility] stated Pt had her labs come back and she stated that Pt had "Critical Labs" elevated BUN 55.7 and wanted Pt evaluated and treated in the ER. Pt stated she has been feeling weak but other then that she is with no complaints. Pt is a GCS 15 with no other complaints to EMS. [facility] [address] [place] [address] EMS Patient Care Report Name: GILDA CONTRERAS Room #: REG [place].#: [id number] Admission: 11/16/21 Attend Phys: Discharge: Date of : 53 Report #: [id number] Pt found in room at [facility], Pt is with no signs of distress noted. Pt is being sent out to ER for critical labs and for feeling weak. Pt is with no other complaints noted and no other complaints noted to EMS and Pt received by RN in ER. Initial Vitals @20:18P: 71,R: 20,BP: 160/68,Pain: 0/10,GCS: 15,Glucose: 86,SpO2: 96,Revised Trauma: 12, @20:25P: 62,R: 20,BP: 149/85,Pain: 0/10,GCS: 15,SpO2: 99,Revised Trauma: 12, Assessments @19:57MENTAL:Event Oriented,Place Oriented,Time Oriented,Person Oriented,SKIN:HEENT:Head/Face: No Abnormalities,Neck/Airway: No Abnormalities,LUNG SOUNDS:General: No Abnormalities,ABDOMEN:General: No Abnormalities,PELVIS//GI:No Abnormalities,EXTREMITIES:Capillary Refill: Left Upper: < 2 Sec,Left Arm: No Abnormalities,Right Arm: No Abnormalities,Left Leg: No Abnormalities,Right Leg: No Abnormalities,PULSE:Radial: 2+ Normal,NEURO:No Abnormalities,@20:28MENTAL:Person Oriented,Time Oriented,Event Oriented,Place Oriented,SKIN:HEENT:Head/Face: No Abnormalities,Neck/Airway: No Abnormalities,LUNG SOUNDS:General: No Abnormalities,ABDOMEN:General: No Abnormalities,PELVIS//GI:No Abnormalities,EXTREMITIES:Capillary Refill: Left Upper: < 2 Sec,Left Arm: No Abnormalities,Right Arm: No Abnormalities,Left Leg: No Abnormalities,Right Leg: No Abnormalities,PULSE:Radial: 2+ Normal,NEURO:No Abnormalities, Impression Generalized Weakness Procedures @19:57 ALS Assessment Response: UnchangedSucceeded Timeline 19:49,Call Received 19:49,Dispatch Notified 19:50,Dispatched 19:52,En Route 19:55,On Scene 19:57,At Patient 19:57,ALS Assessment,Response: UnchangedSucceeded, 20:18,BP: 160/68 M,PULSE: 71,RR: 20 R,SPO2: 96 Ox,ETCO2: ,B,PAIN: 0,GCS: 15, 20:22,Depart Scene 20:25,BP: 149/85 M,PULSE: 62,RR: 20 R,SPO2: 99 Ox,ETCO2: ,BG: ,PAIN: 0,GCS: 15, 20:29,At Destination 20:53,Call Closed [address] [address] EMS Patient Care Report Name: GAUDENCIO TORRESMARTIA Room #: REG [facility].#: [id number] Admission: 11/16/21 Attend Phys: Discharge: Date of : 53 Report #: [id number] Disclaimer v1.1 Copyright 2021 [employer] This EMS Care Summary contains data elements from the applicable legal record (which may be displayed differently). It is designed to provide pertinent information for the following purposes: continuity of care, clinical quality, and state data reporting. The complete legal record is available to ED staff and administrators of the receiving hospital in [facility]'s Patient Tracker. All data is provided "as is."
[~2021-11-16 20:36] MED LIST changes: +K-DUR10 MEQ PO; -POTASSIUM20 PO
[2021-11-16 20:38] VITALS: BP 138/86
[2021-11-16 23:06] LABS: ABSOLUTE NEUTROPHILS 12.8 thou/uL (1.4-8.2); BASOPHILS 0.5 % (0.0-2.0); EOSINOPHILS 1.5 % (0.0-3.0); HEMATOCRIT 31.2 % (37.0-47.0); HEMOGLOBIN 9.9 gm/dL (12.0-15.0); LYMPHOCYTES 10.1 % (24.0-44.0); MCHC 31.8 g/dL (28.0-37.0); MCV 85.1 fL (80.0-100.0); MONOCYTES 11.8 % (1.0-8.0); PLATELET COUNT 238 thou/uL (150-400); POLYS 76.1 % (36.0-66.0); RBC 3.67 mil/uL (4.20-5.00); RDW 17.7 % (10.5-14.5); WBC 16.8 thou/uL (4.0-11.0)
[2021-11-16 23:19] LABS: CALCIUM 8.6 mg/dL (8.5-10.1); CREATININE 0.9 mg/dL (0.6-1.0); POTASSIUM 5.5 mmol/L (3.5-5.1)
[2021-11-16 23:24] LABS: ALBUMIN 2.3 g/dL (3.4-5.0); TOTAL BILIRUBIN 0.5 mg/dL (0.2-1.0); TOTAL PROTEIN 7.5 g/dL (6.4-8.2)
[2021-11-17 00:44] LABS: URINE BILIRUBIN NEGATIVE (Negative); URINE BLOOD NEGATIVE (Negative); URINE CLARITY CLEAR; URINE COLOR YELLOW; URINE GLUCOSE-RANDOM* NEGATIVE (Negative); URINE KETONES NEGATIVE (Negative); URINE LEUKOCYTES-REFLEX NEGATIVE (Negative); URINE NITRITE-REFLEX NEGATIVE (Negative); URINE PROTEIN (DIPSTICK) NEGATIVE (Negative); URINE SPECIFIC GRAVITY 1.015 (1.005-1.035); URINE UROBILINOGEN 0.2 E.U./dl (0.2-1.0)
[2021-11-17 06:16] LABS: HEMATOCRIT 31.9 % (37.0-47.0); HEMOGLOBIN 9.9 gm/dL (12.0-15.0); MCH 26.5 pg (26.0-34.0); MCHC 30.9 g/dL (28.0-37.0); MCV 85.6 fL (80.0-100.0); RBC 3.73 mil/uL (4.20-5.00); RDW 17.3 % (10.5-14.5); WBC 14.2 thou/uL (4.0-11.0)
[2021-11-17 06:39] LABS: CALCIUM 8.1 mg/dL (8.5-10.1)
[2021-11-17 06:42] LABS: POTASSIUM 4.4 mmol/L (3.5-5.1)
--- NOTE | 2021-11-17 07:18 | EKG ---
[place] [address] [facility] [place] [address] ELECTROCARDIOGRAM REPORT Name: GILDA CONTRERAS Room #: 170-11 ADM IN M.R.#: [id number] Admission: 11/17/21 Attend Phys: Theodora Cherry Discharge: Date of : 53 Report #: [id number] [facility] ED Test Date: 2021-11-16 Test Time: 23:28:17 Pat Name: GILDA TORRES Department: Room: 170 Gender: F Manager Of Software: MADHAVI : 1955 Requested By: Emanuel Corley Order Number: [id number] MD: Christian Mera Measurements Intervals [place] Rate: 77 P: 39 TN: 168 QRS: 4 QRSD: 195 T: 35 QT: 379 QTc: 429 Interpretive Statements Sinus rhythm Nonspecific intraventricular conduction delay Compared to ECG 05/20/2020 10:46:59 Intraventricular conduction delay now present Ventricular premature complex(es) no longer present Electronically Signed On 11-17-2021 7:18:21 [employer] HAND by Christian Mera [email or web address] <ELECTRONICALLY SIGNED> By: Christian Mera MD, [facility] 11/17/21 0718 27 27 Christian Mera MD, [facility] /EPI
[2021-11-17 08:05] VITALS: BP 145/58
--- NOTE | 2021-11-17 14:46 | NUR ---
PT ADMITTED RELATED TO RIGHT LEG CELLULITIS AND FAILED OUTPATIENT. CM REVIEWED CHART AND SPOKE WITH CARE TEAM. CM MET WITH PT AT BEDSIDE THIS DAY. PT APPEARED TO BE A&O X4. CM ROLE INTRODUCED. PT INDICATED SHE RESIDES IN LTC OVER AT [facility]. PT INDICATED SHE HAD BEEN USING A WC AND NEEDED STAFF ASSIST WITH TRANSFERS [employer] DEVELOPER. PT INDICATED HE HAD BEEN ABLE TO TRANSFER HERSELF PREVIOULY BUT HAD NOT BEEN ABLE TO JUST BEFORE ADMISSION. PT INDICATED THAT SHE ANTICPATES RETURNING TO [facility] ONCE MEDICALLY STABLE. CM TO FAX CLINICAL IN TO [place]. CM FOLLOWING REGARDING DC PLANNING.
--- NOTE | 2021-11-17 19:14 | NUR ---
PT A&OX4. MAKES NEEDS KNOWN, RIGHT LEG DRESSING CHANGED. MORPHINE CREAM APPLIED, XEROFORM, ABD, KERLIX.
[2021-11-17 19:36] VITALS: BP 142/66
[2021-11-18] VITALS (7 sets, daily range): BP systolic 122–151; BP diastolic 42–50
--- NOTE | 2021-11-18 00:28 | NUR ---
PT ALERT AND ORIENTED X4. VSS 98.8 93% ON RA. UNLABORED ON RA, DRESSING TO RLE WAS SOILED AT START OF SHIFT, PT URINATED ON IT. DRESSING CHANGED ORDERED. PT NPO AFTER MN FOR DEBRIDEMENT. IN C OF URINE AND STOOL. MOISTURE BARRIER APPLIUED AND MORPHINE SILVADENE CREAM ORDERED TO WOUND. ULTRAM GIVEN WHEN ASSEMBLER EQUIPMENT CALLED BACK. PT FELL ASLEEP SO PAIN MED GIVEN LATER AROUND 2330 WHENSHE WOKE UP. PT IS NOW SLEEPING QUIETLY. NO S/S DISTRESS. I AM STILL TRYING TO TRACK DOWN TECH TO DO ARTERIAL DOPPLERS OF THE LEs WITH HELP OF CARCASS WASHER PRESENTLY.
--- NOTE | 2021-11-18 00:50 | NUR ---
ACCORDING TO US TECH DR VALENCIA PLACED LE ARTERIAL DOPPLERS ON HOLD UNTIL PT CAN TOLERATE PROCEDURE LATER.
--- NOTE | 2021-11-18 03:37 | NUR ---
PT SLEEPING. NO C/O PAIN AFTER ULTRAM. MED REC. NOT COMPLETED NO MED LIST AVAILABLE. LE ARTERIAL DOPPLERS ON HOLD STATED BY [employer] WHO SPOKEWITH DR VALENCIA AROUND 1830.
--- NOTE | 2021-11-18 03:56 | NUR ---
PT SLEEPING . NO C/O PAIN. NPO AFTER MN. NO S/S DISTRESS.
--- NOTE | 2021-11-18 07:45 | HC ---
[facility] [place] [address] CONSULTATION Name: GILDA CONTRERAS Room #: 455-P ADM IN M.R.#: [id number] Admission: 11/17/21 Attend Phys: Richard Hitchcock MD Discharge: Date of : 53 Report #: [id number] THIS REPORT FOR: cc: [facility] - Clinic physician unknown [facility] - Clinic physician unknown Pillo Allen MD ~ DATE OF SERVICE: 11/17/2021 INFECTIOUS DISEASE CONSULTATION ATTENDING PHYSICIAN: Dr. Cherry. REASON FOR EVALUATION: Bilateral lower extremity inflammatory eruptions, suspected multifactorial including right-sided skin and soft tissue infection with cellulitis. HISTORY OF PRESENT ILLNESS: Chart reviewed. The patient examined. A 66-year-old woman with a fairly significant medical history, who has known diabetes mellitus, lower extremity venous stasis insufficiency with dermatitis, chronic lymphedema, has had previous cellulitis in the past. She describes significant pain associated with her legs bilaterally. Does have low back pain as well. [facility] multiple lower extremity ulcers, at one point in October was treated with Augmentin for roughly 15 days without apparent benefit. It is not clear that she has had fevers. She does admit to some chills. She has had anorexia with poor p.o. intake. Denies significant nausea. She has not had pulmonary related complaints. Specifically, although when questioned does admit to some dyspnea at times. She was referred to the Emergency Room and had laboratory that showed elevation of BUN of 44, perhaps related to prerenal azotemia. Her creatinine was 0.9. CBC did show white count elevated at 16.8. Urinalysis was generally unremarkable. Chest x-ray showed cardiomegaly, perhaps a subtle right-sided infiltrate. Coronavirus testing was negative. It is notable, she has had infection in the past. Pending wound care evaluation, she was started on therapy with vancomycin. Review of previous cultures in the past had polymicrobial growth back in 07/2021 including gram negatives as well as Enterococcus, Corynebacterium, Pseudomonas at that point was resistant to cephalosporins and aztreonam with high MICs to Zosyn. ALLERGIES: Listed to CONTRAST DYE, CIPROFLOXACIN, ATORVASTATIN. CURRENT MEDICATIONS: Include enoxaparin, gabapentin, vancomycin, ondansetron as needed. PAST MEDICAL HISTORY: As described above, diabetes mellitus, history of chronic lower extremity edema, likely multifactorial including lymphedema, venous stasis insufficiency with dermatitis, history of hypertension, sarcoidosis, has a [facility] [address] [place] [address] CONSULTATION Name: GILDA CONTRERAS Room #: [facility].#: [id number] Admission: 11/17/21 Attend Phys: Richard Hitchcock MD Discharge: Date of : 53 Report #: [id number] cardiomyopathy with history of congestive heart failure, history of depression, morbid obesity. SOCIAL HISTORY: Former smoker, no ethanol, no illicit drug use. FAMILY HISTORY: Noncontributory. REVIEW OF SYSTEMS: As noted above. PHYSICAL EXAMINATION: GENERAL: She is in moderate distress. She has a sense of ill feeling, something is markedly wrong. She states she feels poorly. Does admit to the focus of pain. VITAL SIGNS: Temperature 97.8, pulse 95, respirations 20, blood pressure 145/58. SKIN: Warm, dry, no rashes. HEENT: Normocephalic. Extraocular muscles intact. NECK: Supple. LUNGS: Diminished breath sounds. Few scattered crackles at the bases. HEART: Regular, borderline tachycardic, may have a soft systolic murmur. ABDOMEN: Obese, somewhat firm. No peritoneal signs. GENITOURINARY AND RECTAL: Deferred. EXTREMITIES: Has compressive dressings to the knees bilaterally. LABORATORY DATA: As described above, coronavirus testing was negative. X-ray; cardiomegaly, perhaps subtle infiltrate. Electrolytes: Sodium 134, potassium 4.4, chloride 102, bicarbonate is 31, anion gap of 6, BUN and creatinine 36 and 1.0, glucose of 158. Estimated GFR of 67. CBC: White count of 14.2, H and H 9.9 and 31.9, platelets of 224. Urinalysis is unremarkable. Liver function tests: AST of 38, ALT of 24, alkaline phosphatase of 44, albumin of 2.3, total protein of 7.5, estimated GFR of 76. ASSESSMENT AND PLAN: Bilateral lower extremity inflammatory eruption component of skin and soft tissue in the setting of ulcers, likely has cellulitis. Continue empiric therapy with vancomycin. We will add meropenem based on previous culture results and hypersensitivities as noted above. The patient continue compression and try to elevate. Wound care to evaluate. Ideally, we will be able to be present when they change the dressing. We will add incentive spirometry and certainly, she is at risk for additional complications. <ELECTRONICALLY SIGNED> By: Pillo Allen MD 11/18/21 0745 1240 14 Pillo Allen MD /nt
--- NOTE | 2021-11-18 08:17 | NUR ---
PT C/O RLE PAIN AROUND 0620. PT TEARFUL. NOTIFIED HUSKER OPERATOR. FENTANYL 25MCG IV GIVEN. PT STOPPED CRYING AFTER MUCH ENCOURAGEMENT GIVEN PER NS AND SUPERVISOR POST WAVE, PT WANTED TO GIVE UP AND NOT GO TO SURGERY. PT NPO SINCE AFTER MN. FENTANYL EFFECTIVE . PT SLEEPING. SB-SR ON THE MONITOR.
--- NOTE | 2021-11-18 13:51 | NUR ---
Pt was seen by surgery and it was indicated that pt would benefit from excisional and ultrasonic debridement of her right lower extremity, and may also benefit from application of a topical human connective tissue matrix/skin substitute. Pt continues on iv van and meropenem. Cm faxed clinical update to [facility]. Cm following regarding dc planning needs.
--- NOTE | 2021-11-18 15:12 | NUR ---
PT PLACED ON HOLD FROM P.T. DUE TO ULTRASONIC DEBRIDEMENT OF RLE & ANTICIPATED PLACEMENT OF GRAFT/CT MATRIX. REQUEST NEW POST OP ORDER W/CLARIFICATION OF MOBILTY AND/OR WB RESTRICTIONS.
--- NOTE | 2021-11-18 16:09 | NUR ---
PT BACK TO ROOM FROM SURGERY. 2+ PEDIAL PULSE RLE. DRESSING CDI, PAIN IS TOLERABLE AT THIS TIME .
[2021-11-19 03:43] LABS: ABSOLUTE NEUTROPHILS 9.1 thou/uL (1.4-8.2); BASOPHILS 0.1 % (0.0-2.0); HEMATOCRIT 30.9 % (37.0-47.0); HEMOGLOBIN 9.5 gm/dL (12.0-15.0); LYMPHOCYTES 11.5 % (24.0-44.0); MCH 26.6 pg (26.0-34.0); MCHC 30.7 g/dL (28.0-37.0); MCV 86.5 fL (80.0-100.0); MONOCYTES 8.2 % (1.0-8.0); PLATELET COUNT 204 thou/uL (150-400); POLYS 80.2 % (36.0-66.0); RBC 3.57 mil/uL (4.20-5.00); RDW 17.5 % (10.5-14.5); WBC 11.3 thou/uL (4.0-11.0)
[2021-11-19 03:47] LABS: CREATININE 0.9 mg/dL (0.6-1.0); POTASSIUM 4.5 mmol/L (3.5-5.1)
[2021-11-19 05:30] VITALS: BP 130/63
--- NOTE | 2021-11-19 07:18 | NUR ---
progress pain control was hard to achieve pt yelling out in pain, alternated morphine 2mg ivp, hydrocodone and oxycodone throughout noc with little effect pt finally went to sleep at 6am. voided per bedpan declined mino stated it leaks and causes her dressing to get wet. right lower leg ddressing c/d/i no bleeding or drainage noted.
[2021-11-19 07:33] VITALS: BP 134/54
--- NOTE | 2021-11-19 08:07 | EKG ---
[address] [address] ELECTROCARDIOGRAM REPORT Name: GILDA CONTRERAS Room #: 455- ADM IN M.R.#: [id number] Admission: 11/17/21 Attend Phys: Richard Hitchcock MD Discharge: Date of : 53 Report #: [id number] [facility] Test Date: 2021-11-18 Test Time: 17:48:24 Pat Name: GILDA TORRES Department: Room: [facility] Gender: F Trimming Assembler: VASU : 1955 Requested By: Richard Hitchcock Order Number: [id number] MD: Christian Mera Measurements Intervals [place] Rate: 46 P: 44 [place]: 144 QRS: -4 QRSD: 88 T: 20 QT: 464 QTc: 406 Interpretive Statements Sinus bradycardia Low voltage, precordial leads Compared to ECG 11/16/2021 23:28:17 Low QRS voltage now present Sinus rhythm no longer present Intraventricular conduction delay no longer present Electronically Signed On 11-19-2021 8:07:02 FRONT END WEB DESIGNER by Christian Mera [email or web address] <ELECTRONICALLY SIGNED> By: Christian Mera MD, FAC 11/19/21 0807 1748 1748 Christian Mera MD, [facility] /EPI
--- NOTE | 2021-11-19 10:26 | NUR ---
A/O X 4, ROOM AIR, BEDBOUND, LEFT AC SALINE LOCKED, USES BEDPAN REFUSES SARAHJACOB SAYS IT DOESNT WORK FOR HER, REDNESS BUTTOCKS, Z MELISSA APPILED, SR ON TELE, AC HS @ BREAKFAST 190 8 UNITS GIVEN, I/D RIGHT LEG YESTERDAY, WRAPPED WITH GAUZE AND KERLIX, WOUND CARE TEAM REDRESSED AND ONE TIME ORDER DILUAUDID GIVEN AND THEN ANOTHER 1MG DOSE ORDER GIVEN DURING DRESSING CHANGE, PAIN CONTROL IS THE GOAL FOR THE DAY ALTERNATING NORCO, OXYCODONE, MORPHINE PRN.
--- NOTE | 2021-11-19 14:35 | NUR ---
PT recieved IND debridement yesterday 11/18/21. PT is on IV antibiotics. Care team indicated PT will be here through the weekend with an anticipated D/C early next week to back to [place].
[2021-11-19 20:31] VITALS: BP 114/58
--- NOTE | 2021-11-20 05:36 | NUR ---
patient aox4 makes needs known. pain controlled this shift. patient incontint this shift pericre and barrier cream applied as needed. patient has mahsa wrap on lle and dressing on rle, dressings are c/d/i. patient in bed asleep at this time breathing regular and unlaboured.
[2021-11-20 07:56] VITALS: BP 148/56
--- NOTE | 2021-11-20 10:45 | NUR ---
ASSUMED PT CARE THIS AM. PT IS ALERT & ORIENTED X4. PT HAS IV SITE ON LAC SALINE LOCKED. PT HAS PUREWICK EXTERNAL CATH IN PLACE. PT IS ON ROOM AIR. PT IS ACCUCHECK ACHS. PT C/O OF PAIN AND HAS BEEN ASKING FOR PAIN MEDICATION AT THE BEGINNING OF THE SHIFT. GIVEN SCHEDULED AND PRN PAIN MEDICATIONS PER ORDERED AND PT REQUEST. TURN PT Q2H. PT ON THE BED, BED ON THE LOWEST POSITION, SIDE RAILS UP, CALL LIGHT WITHIN REACH. WILL FOLLOW POC.
[2021-11-20 16:06] VITALS: BP 151/62
[2021-11-20 19:20] VITALS: BP 141/56
--- NOTE | 2021-11-21 03:23 | NUR ---
PT IS A/O X4 AND IS CURRENTLY ON BEDREST. RA. VSS. AFEBRILE. C/O PAIN CONSISTENTLY STATING THAT SHE ISN'T GIVEN ENOUGH TO LESSEN HER PAIN LEVEL. PRN PAIN MEDICATION GIVEN DIRECTED. EXTERNAL FEMALE CATHETER IN PLACE AND WORKING APPROPRIATELY. NO BM THIS SHIFT. FALL PRECAUTIONS IN PLACE, CALL LIGHT IS WITHIN REACH.
[2021-11-21 04:45] VITALS: BP 156/70
[2021-11-21 08:29] VITALS: BP 158/58
[2021-11-21 16:26] VITALS: BP 113/57
[2021-11-21 19:59] VITALS: BP 154/106
[2021-11-21 23:55] VITALS: BP 136/63
[2021-11-22 05:15] VITALS: BP 118/59
[2021-11-22 07:10] VITALS: BP 130/51
[2021-11-22 10:25] LABS: HEMATOCRIT 34.6 % (37.0-47.0); HEMOGLOBIN 10.7 gm/dL (12.0-15.0); MCV 87.2 fL (80.0-100.0); RBC 3.97 mil/uL (4.20-5.00); RDW 17.8 % (10.5-14.5)
[2021-11-22 10:28] LABS: CALCIUM 8.7 mg/dL (8.5-10.1); MAGNESIUM 1.6 mg/dL (1.8-2.4)
--- NOTE | 2021-11-22 13:57 | NUR ---
CARE TEAM INDICATED THAT PT IS PROGRESSING TOWARD GOAL OD DISCHARGING BACK TO [facility]. PT IS ON IV MEROPENEM AND IS TO HAVE A PICC PLACED. CARE TEAM CONSULTED IR DR. AGUERO. CM FAXED CLINICAL UPDATED TO [facility]. DC POSSIBLY ANTICIAPTED IN 24-48 HRS DEPENDING ON POTENTIAL IR INTERVENTION. CM FOLLOWING.
[2021-11-22] MEDS ORDERED: MIRALAX17 GM PO (15:14)
[2021-11-22] MEDS ORDERED: MEROPENEM1 GM IV (15:16)
[2021-11-22] MEDS ORDERED: PROBIOTIC1 EAC7 PO (15:16)
[2021-11-22 15:20] VITALS: BP 141/86
--- NOTE | 2021-11-22 22:49 | NUR ---
PT DISCHARGED THIS NOC. HS MEDICATION GIVEN PER MAR. INSULIN GIVEN PER MAR. REPORT GIVEN TO RECEIVING FACILITY.
== END 2021-11-22 21:30 | DRG 573 ==
LOC: ER 20:36 → EROBS 11-17 02:18 → 4W 11-17 02:18
PROVIDERS: Emergency Medicine; Internal Medicine; Nurse Practitioner Family; Surgery; ADMIT Internal Medicine; ATTEND Internal Medicine
DX: L03.115 Cellulitis of right lower limb (principal); L89.153 Pressure ulcer of sacral region, stage 3; E43 Unspecified severe protein-calorie malnutrition; L89.203 Pressure ulcer of unspecified hip, stage 3; I87.311 Chronic venous hypertension (idiopathic) with ulcer of right lower extremity; I42.9 Cardiomyopathy, unspecified; I50.22 Chronic systolic (congestive) heart failure; Z68.43 Body mass index [BMI] 50.0-59.9, adult; E66.01 Morbid (severe) obesity due to excess calories; Z20.822 Contact with and (suspected) exposure to COVID-19; F32.9 Major depressive disorder, single episode, unspecified; G89.29 Other chronic pain; L03.116 Cellulitis of left lower limb; E11.51 Type 2 diabetes mellitus with diabetic peripheral angiopathy without gangrene; D63.8 Anemia in other chronic diseases classified elsewhere; I11.0 Hypertensive heart disease with heart failure; I87.2 Venous insufficiency (chronic) (peripheral); I89.0 Lymphedema, not elsewhere classified; R53.81 Other malaise; J45.909 Unspecified asthma, uncomplicated; E87.6 Hypokalemia; D86.9 Sarcoidosis, unspecified; Z88.8 Allergy status to other drugs, medicaments and biological substances; Z88.1 Allergy status to other antibiotic agents; Z91.041 Radiographic dye allergy status; Z87.891 Personal history of nicotine dependence; Z99.3 Dependence on wheelchair
CPT/HCPCS: 10045; 27000; 50010; 50101; 50386; 57091; 57119; 57120; 57192; 62110; 62900; 70005

== ENCOUNTER → 2021-12-06 | Outpatient (CLI) | payer OTHER ==
[~2021-12-06] MED LIST changes: +MEROPENEM1 GM IV; +MIRALAX17 GM PO; +PROBIOTIC1 EAC7 PO
== END ==
LOC: HYPER 09:28
PROVIDERS: ATTEND Emergency Medicine
DX: E11.622 Type 2 diabetes mellitus with other skin ulcer (principal); L97.812 Non-pressure chronic ulcer of other part of right lower leg with fat layer exposed; L84 Corns and callosities; I87.2 Venous insufficiency (chronic) (peripheral); I89.0 Lymphedema, not elsewhere classified; E11.51 Type 2 diabetes mellitus with diabetic peripheral angiopathy without gangrene; E11.40 Type 2 diabetes mellitus with diabetic neuropathy, unspecified; I11.0 Hypertensive heart disease with heart failure; I50.9 Heart failure, unspecified; E78.5 Hyperlipidemia, unspecified; M19.90 Unspecified osteoarthritis, unspecified site; E11.36 Type 2 diabetes mellitus with diabetic cataract; H26.9 Unspecified cataract; J45.909 Unspecified asthma, uncomplicated; G47.33 Obstructive sleep apnea (adult) (pediatric); E66.01 Morbid (severe) obesity due to excess calories; Z68.44 Body mass index [BMI] 60.0-69.9, adult; Z79.82 Long term (current) use of aspirin